=== PATIENT | male | born 1945 | race Caucasian/White ===

== ENCOUNTER → 2018-07-04 | Outpatient (REF) | payer OTHER ==
[2018-07-04 17:07] LABS: HEMATOCRIT 49.6 % (39.0-50.0); HEMOGLOBIN 15.9 g/dl (14.0-18.0); IMMATURE GRANULOCYTES 0.4 % (0.0-5.0); MEAN CELL VOLUME 84.8 fL CALC (80.0-100.0); MEAN CORPUSCULAR HGB 27.2 pG CALC (26.0-32.0); MEAN CORPUSCULAR HGB CONC 32.1 g/L CALC (32.0-36.0); NEUT# 5.21 thou/uL (1.82-7.42); RED BLOOD COUNT 5.85 mill/uL (4.70-6.10); RED CELL DISTRI WIDTH 15.2 % (11.5-15.5)
[2018-07-04 17:20] LABS: ALBUMIN 3.8 g/dL (3.2-5.0); ALKALINE PHOSPHATASE 71 u/l (38-126); AMYLASE < 30 u/l (30-110); BILIRUBIN, TOTAL 0.7 mg/dL (0.0-1.4); LIPASE 257 u/l (23-300); SGOT/AST 42 u/l (19-48); TOTAL PROTEIN 6.3 g/dL (6.3-8.2)
== END | disposition home or self-care (01) | DRG 948 ==
LOC: LAB 15:01
PROVIDERS: ATTEND Internal Medicine Gastroenterology
DX: R74.0 Nonspecific elevation of levels of transaminase and lactic acid dehydrogenase [LDH] (principal); R18.0 Malignant ascites; R19.7 Diarrhea, unspecified

== ENCOUNTER → 2018-07-10 | Outpatient (REF) | payer OTHER | END | disposition home or self-care (01) | DRG 948 | LOC: ULTRASND 07-08 10:45 | PROVIDERS: ATTEND Internal Medicine Gastroenterology | DX: R18.8 Other ascites (principal) ==